=== PATIENT | male | born 1980 | race Caucasian/White ===

== ENCOUNTER 2022-04-21 00:56 | Emergency (ER) | payer SELFPAY ==
[~2022-04-21] VITALS: Ht 167.6 cm; Wt 73.0 kg
[2022-04-21 08:50] VITALS: BP 96/64
== END 2022-04-21 09:08 | disposition home or self-care (01) ==
LOC: ER 01:04
DX: R41.82 Altered mental status, unspecified (principal); F41.9 Anxiety disorder, unspecified; E78.00 Pure hypercholesterolemia, unspecified; I10 Essential (primary) hypertension
CPT/HCPCS: 99285